=== PATIENT | male | born 1980 | race Caucasian/White ===

== ENCOUNTER 2024-01-18 12:02 | Inpatient (IN) | payer OTHER ==
[2024-01-18 12:27] VITALS: BMI 25.0
[2024-01-18] MEDS ORDERED: LOPERAMIDE HCL 2 MG CAPSULE PO PRN (12:38)
[2024-01-18] MEDS ORDERED: ONDANSETRON *ODT* 4 MG TABLET SL PRN (12:38)
[2024-01-18] MEDS ORDERED: MAGNESIUM HYDROX 2400MG/30ML ORAL SUSPENSION 30 ML CUP PO PRN (12:38)
[2024-01-18] MEDS ORDERED: BENZOCAINE/MENTHOL (CHLORASEPTIC ) LOZENGE MM PRN (12:38)
[2024-01-18] MEDS ORDERED: BENZONATATE 200 MG CAPSULE PO PRN (12:38)
[2024-01-18] MEDS ORDERED: DICYCLOMINE HCL 10 MG CAPSULE PO PRN (12:38)
[2024-01-18] MEDS ORDERED: ACETAMINOPHEN 325 MG TABLET (FP) PO PRN (12:38)
[2024-01-18] MEDS ORDERED: POLYETHYLENE GLYCOL (HEALTHYLAX) 3350 17 GM PACKET PO PRN (12:38)
[2024-01-18] MEDS ORDERED: METHOCARBAMOL 500 MG TABLET PO PRN (12:38)
[2024-01-18] MEDS ORDERED: hydrOXYzine PAMOATE 25 MG CAPSULE (FP) PO PRN (12:38)
[2024-01-18] MEDS ORDERED: BISMUTH SUBSALICYLATE 262 MG/15 ML BTL PO PRN (12:38)
[2024-01-18] MEDS ORDERED: IBUPROFEN 400 MG TABLET (FP) PO PRN (12:38)
[2024-01-18] MEDS ORDERED: guaiFENesin 600 MG TABLET.ER (FP) PO PRN (12:38)
[2024-01-18] MEDS ORDERED: IBUPROFEN 600 MG TABLET (FP) PO PRN (12:38)
[2024-01-18] MEDS ORDERED: MAG HYDROX/AL HYDROX/SIMETH 30 ML UNIT-DOSE CUP PO PRN (12:38)
[2024-01-18] MEDS ORDERED: diazePAM 5 MG TABLET PO PRN (19:08)
[2024-01-18] MEDS: diazePAM 5 MG TABLET PO ONE (19:20)
[2024-01-18] MEDS: MELATONIN 5 MG TABLETS PO SCH (22:12)
[2024-01-18] MEDS: THIAMINE 100 MG TABLET PO SCH (22:12)
[2024-01-18] MEDS: MICONAZOLE NITRATE 28 GM TUBE TP SCH (22:12)
[2024-01-18] MEDS: diazePAM 5 MG TABLET PO SCH (22:14)
[2024-01-19] MEDS: PRENATAL VITAMINS W/ FOLIC ACID TABLET (FP) PO SCH (10:10)
[2024-01-19 11:46] LABS: HEMOGLOBIN 13.2 GM/dL (11.7-16.9); MCHC 34.7 g/dl (32.0-35.9); MEAN CELL VOLUME 95.1 fl (80-96); MEAN PLT VOLUME 8.2 fl (7.5-11.1); PLATELET COUNT 96 10^3/uL (134-434); RDW 13.2 % (11.9-15.9); WHITE BLOOD COUNT 5.7 K/mm3 (4.0-10.0)
[2024-01-19 11:53] LABS: POTASSIUM 3.5 mmol/L (3.5-5.1)
[2024-01-19 12:07] LABS: ALBUMIN 3.6 g/dl (3.4-5.0)
[2024-01-19 12:10] LABS: CREATININE 0.6 mg/dL (0.55-1.3)
[2024-01-19 12:11] LABS: BILIRUBIN,TOTAL 1.5 mg/dL (0.2-1); TOT PROT 7.8 g/dl (6.4-8.2)
[2024-01-20] MEDS: diazePAM 5 MG TABLET PO SCH (05:37)
[2024-01-20] MEDS: METOPROLOL TARTRATE 25 MG TABLET (FP) PO ONE (21:21)
[2024-01-21] MEDS: diazePAM 5 MG TABLET PO SCH (05:36)
[2024-01-21] MEDS: NALTREXONE HCL 50 MG TABLET PO SCH (10:54)
[2024-01-21 11:47] LABS: POTASSIUM 3.8 mmol/L (3.5-5.1)
[2024-01-21 11:52] LABS: ALBUMIN 3.5 g/dl (3.4-5.0); CALCIUM 9.2 mg/dL (8.5-10.1)
[2024-01-21 11:53] LABS: BLOOD UREA NITROGEN 12.7 mg/dL (7-18)
[2024-01-21 11:55] LABS: CREATININE 0.6 mg/dL (0.55-1.3)
[2024-01-21 11:57] LABS: TOT PROT 7.6 g/dl (6.4-8.2)
[2024-01-22] MEDS: diazePAM 5 MG TABLET PO ONE (05:18)
[2024-01-22 09:17] VITALS: BP 132/91; PULSE 97; RESP 18; TEMP 97.8
== END 2024-01-22 09:36 | disposition home or self-care (01) | DRG 775 ==
LOC: YASAS 12:02 → Y3N 14:42
PROVIDERS: ADMIT Allergy & Immunology; ATTEND Surgery
PROC: HZ2ZZZZ Detoxification Services for Substance Abuse Treatment (ICD-10-PCS; principal; 2024-01-18)
DX: F10.230 Alcohol dependence with withdrawal, uncomplicated (principal); F41.9 Anxiety disorder, unspecified; E11.9 Type 2 diabetes mellitus without complications; R74.8 Abnormal levels of other serum enzymes
CPT/HCPCS: 36415; 80053; 80305; 80307; 82962; 85027; 86780; 93005; 93010

== ENCOUNTER 2024-05-10 10:17 | Inpatient (IN) | payer OTHER ==
[2024-05-10 11:16] VITALS: BMI 27.8
[2024-05-10] MEDS ORDERED: BISMUTH SUBSALICYLATE 262 MG/15 ML BTL PO PRN (11:39)
[2024-05-10] MEDS ORDERED: ACETAMINOPHEN 325 MG TABLET (FP) PO PRN (11:39)
[2024-05-10] MEDS ORDERED: LOPERAMIDE HCL 2 MG CAPSULE PO PRN (11:39)
[2024-05-10] MEDS ORDERED: IBUPROFEN 600 MG TABLET (FP) PO PRN (11:39)
[2024-05-10] MEDS ORDERED: NICOTINE POLACRILEX 2 MG LOZENGE BC PRN (11:39)
[2024-05-10] MEDS ORDERED: BENZOCAINE/MENTHOL (CHLORASEPTIC ) LOZENGE MM PRN (11:39)
[2024-05-10] MEDS ORDERED: MAG HYDROX/AL HYDROX/SIMETH 30 ML UNIT-DOSE CUP PO PRN (11:39)
[2024-05-10] MEDS ORDERED: IBUPROFEN 400 MG TABLET (FP) PO PRN (11:39)
[2024-05-10] MEDS ORDERED: NICOTINE POLACRILEX 2 MG GUM BUC PRN (11:39)
[2024-05-10] MEDS ORDERED: BENZONATATE 200 MG CAPSULE PO PRN (11:39)
[2024-05-10] MEDS ORDERED: ONDANSETRON *ODT* 4 MG TABLET SL PRN (11:39)
[2024-05-10] MEDS ORDERED: POLYETHYLENE GLYCOL (HEALTHYLAX) 3350 17 GM PACKET PO PRN (11:39)
[2024-05-10] MEDS ORDERED: DICYCLOMINE HCL 10 MG CAPSULE PO PRN (11:39)
[2024-05-10] MEDS ORDERED: MAGNESIUM HYDROX 2400MG/30ML ORAL SUSPENSION 30 ML CUP PO PRN (11:39)
[2024-05-10] MEDS ORDERED: guaiFENesin 600 MG TABLET.ER (FP) PO PRN (11:39)
[2024-05-10] MEDS ORDERED: hydrOXYzine PAMOATE 25 MG CAPSULE (FP) PO ONE (13:09)
[2024-05-10] MEDS ORDERED: diazePAM 5 MG TABLET ONE (13:09)
[2024-05-10] MEDS: diazePAM 5 MG TABLET PO PRN (13:15)
[2024-05-10] MEDS: hydrOXYzine PAMOATE 25 MG CAPSULE (FP) PO PRN (13:16)
[2024-05-10] MEDS: METHOCARBAMOL 500 MG TABLET PO PRN (22:01)
[2024-05-10] MEDS: diazePAM 5 MG TABLET PO SCH (22:02)
[2024-05-10] MEDS: THIAMINE 100 MG TABLET PO SCH (22:02)
[2024-05-10] MEDS: MELATONIN 5 MG TABLETS PO SCH (22:02)
[2024-05-11] MEDS: PRENATAL VITAMINS W/ FOLIC ACID TABLET (FP) PO SCH (10:15)
[2024-05-11] MEDS: FLU VACCINE (FLULAVAL) PF 45 MCG/0.5 ML SYRINGE 2024-2025 IM ONE (11:02)
[2024-05-11 13:16] LABS: HEMATOCRIT 40.5 % (35.4-49); HEMOGLOBIN 13.9 GM/dL (11.7-16.9); MCH 32.5 pg (25.7-33.7); MCHC 34.2 g/dl (32.0-35.9); MEAN CELL VOLUME 95.1 fl (80-96); MEAN PLT VOLUME 8.5 fl (7.5-11.1); PLATELET COUNT 111 10^3/uL (134-434); RBC 4.26 M/mm3 (4.00-5.60); RDW 13.1 % (11.9-15.9)
[2024-05-11 13:45] LABS: POTASSIUM 4.2 mmol/L (3.5-5.1)
[2024-05-11 14:00] LABS: BLOOD UREA NITROGEN 10.4 mg/dL (7-18)
[2024-05-11 14:02] LABS: CALCIUM 9.6 mg/dL (8.5-10.1)
[2024-05-11 14:03] LABS: CREATININE 0.8 mg/dL (0.55-1.3)
[2024-05-11 14:04] LABS: BILIRUBIN,TOTAL 2.2 mg/dL (0.2-1)
[2024-05-11 14:29] LABS: ALBUMIN 3.8 g/dl (3.4-5.0)
[2024-05-11] MEDS: NALTREXONE HCL 50 MG TABLET PO SCH (15:59)
[2024-05-12] MEDS: diazePAM 5 MG TABLET PO SCH (05:53)
[2024-05-12] MEDS: METOPROLOL TARTRATE 25 MG TABLET (FP) PO SCH ×2 (18:25→22:24)
[2024-05-13] MEDS: diazePAM 5 MG TABLET PO SCH (05:59)
[2024-05-14] MEDS: diazePAM 5 MG TABLET PO ONE (05:54)
[2024-05-14 08:52] VITALS: BP 147/84; PULSE 98; RESP 17; TEMP 97.9
== END 2024-05-14 10:50 | disposition other institution (70) | DRG 775 ==
LOC: YASAS 10:17 → Y6N 12:46
PROVIDERS: ADMIT Allergy & Immunology; ATTEND Surgery
PROC: HZ2ZZZZ Detoxification Services for Substance Abuse Treatment (ICD-10-PCS; principal; 2024-05-09)
DX: F10.230 Alcohol dependence with withdrawal, uncomplicated (principal); F17.210 Nicotine dependence, cigarettes, uncomplicated; F41.9 Anxiety disorder, unspecified; I10 Essential (primary) hypertension; R73.03 Prediabetes
CPT/HCPCS: 36415; 80053; 80305; 80307; 82247; 82962; 83036; 85027

== ENCOUNTER 2024-09-03 18:29 | Emergency (ER) | payer OTHER ==
[2024-09-03 18:41] VITALS: TEMP 97.8; BMI 24.2
[2024-09-03] MEDS ORDERED: SILVER NITRATE 75% APPLIC STCK 1 PKT EACH ONE (19:18)
[2024-09-03] MEDS: AMOXICILLIN 500 MG CAPSULE (FP) PO ONE (19:45)
[2024-09-03 20:18] LABS: HEMATOCRIT 41.7 % (35.4-49); HEMOGLOBIN 14.7 G/dL (11.7-16.9); MCH 33.7 pg (25.7-33.7); MCHC 35.3 g/dl (32.0-35.9); MEAN CELL VOLUME 95.4 fl (80-96); MEAN PLT VOLUME 8.7 fl (7.5-11.1); PLATELET COUNT 85.3 10^3/uL (134-434); RBC 4.37 10^6/uL (4.00-5.60); RDW 13.7 % (11.9-15.9); WHITE BLOOD COUNT 5.1 10^3/uL (4.0-10.8)
[2024-09-03 20:24] LABS: INR 0.94 (0.83-1.09); PROTHROMBIN TIME (PATIENT) 10.7 SEC (9.7-13.0)
[2024-09-03 20:45] VITALS: BP 120/84; PULSE 92; RESP 16
== END 2024-09-03 20:45 | disposition home or self-care (01) ==
LOC: FER 18:29
DX: R04.0 Epistaxis (principal)
CPT/HCPCS: 36415; 85027; 85610; 99283-25

== ENCOUNTER 2024-10-10 17:10 | Inpatient (IN) | payer SELFPAY ==
[2024-10-10 17:51] VITALS: BMI 25.0
[2024-10-10] MEDS ORDERED: chlordiazePOXIDE HCL 25 MG CAPSULE PO PRN (18:00)
[2024-10-10] MEDS ORDERED: IBUPROFEN 400 MG TABLET (FP) PO PRN (18:09)
[2024-10-10] MEDS ORDERED: ACETAMINOPHEN 325 MG TABLET (FP) PO PRN (18:09)
[2024-10-10] MEDS ORDERED: BENZONATATE 200 MG CAPSULE PO PRN (18:09)
[2024-10-10] MEDS ORDERED: IBUPROFEN 600 MG TABLET (FP) PO PRN (18:09)
[2024-10-10] MEDS ORDERED: POLYETHYLENE GLYCOL (HEALTHYLAX) 3350 17 GM PACKET PO PRN (18:09)
[2024-10-10] MEDS ORDERED: ONDANSETRON *ODT* 4 MG TABLET SL PRN (18:09)
[2024-10-10] MEDS ORDERED: MAGNESIUM HYDROX 2400MG/30ML ORAL SUSPENSION 30 ML CUP PO PRN (18:09)
[2024-10-10] MEDS ORDERED: DICYCLOMINE HCL 10 MG CAPSULE PO PRN (18:09)
[2024-10-10] MEDS ORDERED: LOPERAMIDE HCL 2 MG CAPSULE PO PRN (18:09)
[2024-10-10] MEDS ORDERED: BENZOCAINE/MENTHOL (CHLORASEPTIC ) LOZENGE MM PRN (18:09)
[2024-10-10] MEDS ORDERED: METHOCARBAMOL 500 MG TABLET PO PRN (18:09)
[2024-10-10] MEDS ORDERED: guaiFENesin 600 MG TABLET.ER (FP) PO PRN (18:09)
[2024-10-10] MEDS ORDERED: MAG HYDROX/AL HYDROX/SIMETH 30 ML UNIT-DOSE CUP PO PRN (18:09)
[2024-10-10] MEDS ORDERED: hydrOXYzine PAMOATE 25 MG CAPSULE (FP) PO PRN (18:09)
[2024-10-10] MEDS ORDERED: NALOXONE (NARCAN) HCL 4 MG/0.1 ML SPRAY NS PRN (18:09)
[2024-10-10] MEDS ORDERED: BISMUTH SUBSALICYLATE 524 MG/30 ML PO PRN (18:09)
[2024-10-10] MEDS ORDERED: chlordiazePOXIDE HCL 25 MG CAPSULE ONE (19:31)
[2024-10-10] MEDS ORDERED: propRANOLol HCL 10 MG TABLET ONE (19:31)
[2024-10-10] MEDS: propRANOLol HCL 10 MG TABLET PO ONE (19:32)
[2024-10-10] MEDS: chlordiazePOXIDE HCL 25 MG CAPSULE PO ONE (19:32)
[2024-10-10] MEDS: INSULIN ASPART SLIDING SCALE (NOVOLOG) 1 VIAL SQ SCH (21:29)
[2024-10-10] MEDS: THIAMINE 100 MG TABLET PO SCH (22:13)
[2024-10-10] MEDS: MELATONIN 5 MG TABLETS PO SCH (22:13)
[2024-10-10] MEDS: chlordiazePOXIDE HCL 25 MG CAPSULE PO SCH (22:14)
[2024-10-11] MEDS ORDERED: FLU VACCINE (FLULAVAL) PF 45 MCG/0.5 ML SYRINGE 2024-2025 IM ONE (07:00)
[2024-10-11 09:11] VITALS: RESP 17
[2024-10-11] MEDS: PRENATAL VITAMINS W/ FOLIC ACID TABLET (FP) PO SCH (10:03)
[2024-10-11] MEDS: propRANOLol HCL 10 MG TABLET PO SCH (11:26)
[2024-10-11 11:35] LABS: HEMATOCRIT 38.1 % (40.1-51.0); HEMOGLOBIN 12.2 g/dL (13.7-17.5); MEAN CELL VOLUME 96.2 fl (79.0-92.2); MEAN PLT VOLUME 10.7 fl (9.4-12.4); PLATELET COUNT 76 x10^3/uL (163-337); RDW 11.9 % (12.1-15.9)
[2024-10-11 11:40] LABS: POTASSIUM 3.7 mmol/L (3.5-5.1)
[2024-10-11 11:57] LABS: CALCIUM 9.2 mg/dL (8.5-10.1)
[2024-10-11 11:58] LABS: ALBUMIN 3.4 g/dl (3.4-5.0); BLOOD UREA NITROGEN 12.5 mg/dL (7-18)
[2024-10-11 12:01] LABS: CREATININE 0.7 mg/dL (0.55-1.3)
[2024-10-11 12:02] LABS: BILIRUBIN,TOTAL 1.1 mg/dL (0.2-1); TOT PROT 7.2 g/dl (6.4-8.2)
[2024-10-11] MEDS: FLU VACCINE (FLULAVAL) PF 45 MCG/0.5 ML SYRINGE 2024-2025 IM ONE (12:26)
[2024-10-11 12:51] VITALS: BP 140/97; PULSE 89; TEMP 97.7
[2024-10-12] MEDS ORDERED: chlordiazePOXIDE HCL 25 MG CAPSULE PO SCH (05:00)
[2024-10-13] MEDS ORDERED: chlordiazePOXIDE HCL 10 MG CAPSULE PO PRN
[2024-10-13] MEDS ORDERED: chlordiazePOXIDE HCL 10 MG CAPSULE PO SCH (05:00)
[2024-10-14] MEDS ORDERED: chlordiazePOXIDE HCL 10 MG CAPSULE PO SCH (05:00)
[2024-10-15] MEDS ORDERED: chlordiazePOXIDE HCL 10 MG CAPSULE PO ONE (05:00)
== END 2024-10-11 15:26 | disposition home or self-care (01) | DRG 775 ==
LOC: YASAS 17:10 → Y6N 19:23
PROVIDERS: ADMIT Allergy & Immunology; ATTEND Allergy & Immunology
PROC: HZ2ZZZZ Detoxification Services for Substance Abuse Treatment (ICD-10-PCS; principal; 2024-10-10)
DX: F10.230 Alcohol dependence with withdrawal, uncomplicated (principal); F41.9 Anxiety disorder, unspecified; E11.9 Type 2 diabetes mellitus without complications
CPT/HCPCS: 36415; 80053; 82962; 85027; 86780; 90656